=== PATIENT | male | born 1980 | race Caucasian/White ===

== ENCOUNTER 2022-08-13 11:46 | Outpatient (CLI) | payer OTHER, MEDICAID, SELFPAY ==
--- NOTE | 2022-08-13 11:30 | DI.RAD_ITS ---
Exam(s) XR SHOULDER RT COMPLETE 2+V EXAM: XR SHOULDER RT COMPLETE 2+V CLINICAL HISTORY: PAIN, M25.511,HYPEREXTENDED,PAIN OVER AC JOINT,? BONY ABNORMALITY. TECHNIQUE: 2D digital imaging was performed of the right shoulder. Five images were obtained. AP, Grashey, Y-view and axillary views were obtained. COMPARISON: No exams were available for comparison FINDINGS: BONES: No acute fracture is present. No bony destructive lesion is seen. JOINTS: No dislocation present. The acromial humeral interval within normal limits. The coracoclavic ular distance is at the upper limits of normal in size. The glenohumeral joint is well maintained. SOFT TISSUE: Normal. IMPRESSION: 1. No acute fracture or dislocation. 2. Coracoclavicular ligament distance is at the upper limits of normal. This may represent a sprain. DATA REPOSITORY: RADIATION DOSE DELIVERED:
== END 2022-08-13 12:06 ==
PROVIDERS: PCP Family Medicine; Visit Provider Physician Assistant Medical
DX: M25.511 Pain in right shoulder (principal)
CPT/HCPCS: 73030

== ENCOUNTER → 2022-11-16 00:35 | Outpatient (CLI) | payer OTHER, SELFPAY ==
--- NOTE | 2022-11-16 08:15 | DI.MRI_ITS ---
Exam(s) MR UPPER JOINT RT WO EXAM: MR UPPER JOINT RT WO CLINICAL HISTORY: Pain, s/p injury 08/12/2022,M25.511. TECHNIQUE: Multiplanar multisequence MRI was performed. COMPARISON: Plain films 13 August 2022 FINDINGS: BONES: There is no fracture or contusion pattern. JOINTS:The acromioclavicular joint shows minimal spurring. There is some high signal at the AC joint but no evidence of widening. Findings could be posttraumatic or inflammatory. The glenohumeral alanis nt is normal. TENDONS: Supraspinatus: Unremarkable. Infraspinatus: Unremarkable. Subscapularis: Unremarkable. Teres Minor: Unremarkable. Biceps and [place]: Unremarkable. MUSCLES: Unremarkable. GLENOID LABRUM: Unremarkable on this noncontrast examination. SOFT TISSUES: Unremarkable. OTHER: Subacromial and subdeltoid bursae shows no fluid. Minimal fluid in subcoracoid bursa. . IMPRESSION: Mild spurring at AC joint with some adjacent high signal which could be posttraumatic or inflammatory . No evidence of rotator cuff tear. DATA REPOSITORY:
== END ==
PROVIDERS: PCP Family Medicine; Visit Provider Nurse Practitioner Family
DX: M25.511 Pain in right shoulder (principal)
CPT/HCPCS: 73221

== ENCOUNTER 2022-12-27 18:12 | Outpatient (REF) | payer OTHER, MEDICAID, SELFPAY | END 2022-12-27 18:13 | disposition home or self-care (01) | LOC: LBN 18:12 | PROVIDERS: PCP Family Medicine; Visit Provider Nurse Practitioner Family | DX: N50.82 Scrotal pain (principal) | CPT/HCPCS: 87086 ==